=== PATIENT | male | born 1980 | race Asian ===

== ENCOUNTER 2017-11-11 08:11 | Emergency (ER) | payer OTHER ==
[~2017-11-11] VITALS: Ht 170.2 cm; Wt 94.3 kg
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
[2017-11-11 08:13] VITALS: BP 142/100
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
--- NOTE | 2017-11-11 08:31 | NUR ---
PT TAKEN TO X RAY VIA GURNEY ACCOMPANIED BY [email or web address]
[2017-11-11] MEDS ORDERED: KETOROLAC 60 MG/2 ML VIAL IM ONE (09:30)
[2017-11-11 10:28] VITALS: BP 135/98
== END 2017-11-11 10:28 | disposition home or self-care (01) ==
LOC: MED 08:11
DX: S16.1XXA Strain of muscle, fascia and tendon at neck level, initial encounter (principal); M25.512 Pain in left shoulder; R03.0 Elevated blood-pressure reading, without diagnosis of hypertension; V43.52XA Car driver injured in collision with other type car in traffic accident, initial encounter; Y93.I9 Activity, other involving external motion; Y92.488 Other paved roadways as the place of occurrence of the external cause; Y99.8 Other external cause status
CPT/HCPCS: 72040; 73030; 96372; 99284; J1885